=== PATIENT | female | born 1975 | race Caucasian/White ===

== ENCOUNTER → 2018-01-31 | Outpatient (CLI) | payer OTHER ==
[~2018-01-31] MED LIST: DHA OMEGA PO; GLUCOSAMINE PO; LEVOTHYROXIN0.025 MG PO; MOTRIN 600600 MG/TAB PO; PERCOCET 325 MG1 TA2 PO; PRENATAL VITAMI1 TA5 PO; PRILOSEC10 MG PO
== END ==
LOC: MC.RAD 13:00
DX: Z12.31 Encounter for screening mammogram for malignant neoplasm of breast (principal)

== ENCOUNTER → 2019-04-10 | Outpatient (CLI) | payer OTHER | LOC: MC.RAD 09:29 | DX: Z12.31 Encounter for screening mammogram for malignant neoplasm of breast (principal) ==

== ENCOUNTER → 2020-04-08 | Outpatient (CLI) | payer OTHER | LOC: MC.RAD 14:15 | DX: Z12.31 Encounter for screening mammogram for malignant neoplasm of breast (principal) ==

== ENCOUNTER → 2021-05-19 | Outpatient (CLI) | payer OTHER | LOC: MC.RAD 10:59 | DX: Z12.31 Encounter for screening mammogram for malignant neoplasm of breast (principal) ==

== ENCOUNTER → 2021-11-24 | Outpatient (RCR) | payer OTHER | LOC: MKS.ESL.PT | DX: M22.40 Chondromalacia patellae, unspecified knee (principal) ==

== ENCOUNTER 2021-12-22 09:45 | Outpatient (RCR) | payer OTHER | END 2021-12-24 | disposition still patient (30) | LOC: MKS.ESL.PT | DX: M22.40 Chondromalacia patellae, unspecified knee (principal) ==

== ENCOUNTER 2022-01-05 13:15 | Outpatient (RCR) | payer OTHER | END 2022-01-24 | disposition still patient (30) | LOC: MKS.ESL.PT | DX: M22.40 Chondromalacia patellae, unspecified knee (principal) ==

== ENCOUNTER → 2022-07-20 | Outpatient (CLI) | payer OTHER | LOC: MC.RAD 13:39 | DX: Z12.31 Encounter for screening mammogram for malignant neoplasm of breast (principal) ==